=== PATIENT | female | born 1960 | race African-American/Black ===

== ENCOUNTER 2021-10-30 17:43 | Inpatient (IN) | payer MEDICAID ==
[~2021-10-30] VITALS: Ht 157.5 cm; Wt 66.4 kg
[2021-10-30] MEDS ORDERED: RIVA20TA PO (21:00)
[2021-10-30] MEDS ORDERED: ATOR40TA71 PO (21:00)
[2021-10-30] MEDS ORDERED: ALLO100T PO (21:00)
[2021-10-30] MEDS ORDERED: DIVA-111 PO (21:00)
[2021-10-30] MEDS ORDERED: FOLI-130 PO (21:00)
[2021-10-30] MEDS ORDERED: METO25 PO (21:00)
[2021-10-30] MEDS ORDERED: LACO150T2 PO (21:00)
[2021-10-30] MEDS ORDERED: METF-911 PO (21:00)
[2021-10-30] MEDS ORDERED: ZOLPIDEM TARTRATE 10 MG TABLET PO PRN (23:15)
[2021-10-30] MEDS ORDERED: LORazepam 2 MG TABLET PO PRN (23:15)
[2021-10-30] MEDS ORDERED: HALOPERIDOL 5 MG TABLET PO PRN (23:15)
[2021-10-30 23:47] LABS: ANION GAP 9 mmol/L (8-16); CARBON DIOXIDE 26 mmol/L (22-29); CHLORIDE 106 mmol/L (98-107); CREATININE 0.85 mg/dL (0.60-1.30); GLOMERULAR FILTR. RATE CALC > 60 mL/min (>60); GLUCOSE,RANDOM 108 mg/dL (70-110); POTASSIUM 3.4 mmol/L (3.5-5.1); SODIUM SERUM 141 mmol/L (136-145); UREA NITROGEN, BLOOD 19 mg/dL (7-18)
[2021-10-30 23:52] LABS: VALPROIC ACID 4 mcg/mL (50-100)
[2021-10-31 00:04] LABS: COVID AG,FIA SOURCE NASAL SWAB
[2021-10-31] MEDS ORDERED: LACOSAMIDE 100 MG TABLET PO ONE ×2 (02:45→20:15)
[2021-10-31 09:17] LABS: APPEARANCE,URINE CLEAR (CLEAR); BILIRUBIN,URINE NEGATIVE (NEGATIVE); GLUCOSE, URINE (UA) NEGATIVE (NEGATIVE); KETONES,URINE NEGATIVE (NEGATIVE); LEUKOCYTE ESTERASE ,URINE NEGATIVE (NEGATIVE); NITRATE,URINE NEGATIVE (NEGATIVE); OCCULT BLOOD,URINE NEGATIVE (NEGATIVE); PROTEIN,URINE NEGATIVE (NEGATIVE); SPECIFIC GRAVITIY, URINE 1.014 (1.003-1.030); UROBILINOGEN,URINE <=1.0 mg/dL (<=1.0)
[2021-10-31 15:31] VITALS: BP 197/92
[2021-10-31 16:14] VITALS: BP 158/89
[2021-10-31] MEDS ORDERED: LACOSAMIDE 50 MG TABLET PO ONE (21:00)
[2021-11-01] MEDS: MetFORMIN HCL 500 MG ER TABLET PO SCH (06:58)
[2021-11-01 08:01] VITALS: BP 199/104
[2021-11-01] MEDS: FOLIC ACID 1 MG TABLET PO SCH (08:06)
[2021-11-01] MEDS: METOPROLOL TARTRATE 25 MG TABLET PO SCH (08:06)
[2021-11-01] MEDS: ATORVASTATIN CALCIUM 40 MG TABLET PO SCH (08:06)
[2021-11-01] MEDS: ALLOPURINOL 100 MG TABLET PO SCH (08:06)
[2021-11-01] MEDS: LACOSAMIDE 50 MG TABLET PO SCH ×2 (08:07→17:04)
[2021-11-01 08:30] VITALS: BP 185/93
[2021-11-01] MEDS ORDERED: LACOSAMIDE 100 MG TABLET PO SCH (09:00)
[2021-11-01 10:05] VITALS: BP 191/98
[2021-11-01] MEDS ORDERED: ALBUTEROL SULFATE HFA 90 MCG/PUFF 8 GM INHALER IH PRN (10:15)
[2021-11-01] MEDS ORDERED: ACETAMINOPHEN 325 MG TABLET PO PRN (10:15)
[2021-11-01] MEDS ORDERED: MAGNESIUM HYDROXIDE SUSPENSION 30 ML UDCUP PO PRN (10:15)
[2021-11-01] MEDS ORDERED: BACITRACIN 28 GM OINTMENT TP PRN (10:15)
[2021-11-01] MEDS ORDERED: BENZOCAINE/MENTHOL LOZENGE PO PRN (10:15)
[2021-11-01] MEDS ORDERED: LOPERAMIDE HCL 2 MG CAPSULE PO PRN (10:15)
[2021-11-01] MEDS ORDERED: ONDANSETRON HCL 4 MG TABLET PO PRN (10:15)
[2021-11-01] MEDS ORDERED: PETROLATUM,WHITE 28 GM JELLY TP PRN (10:15)
[2021-11-01] MEDS ORDERED: IBUPROFEN 600 MG TABLET PO PRN (10:15)
[2021-11-01] MEDS ORDERED: MAG HYDROX/AL HYDROX/SIMETH ES 30 ML SUSPENSION UDCUP PO PRN (10:15)
[2021-11-01] MEDS: CloNIDine HCL 0.1 MG TABLET PO PRN (10:22)
[2021-11-01 12:00] VITALS: BP 160/79
[2021-11-01 16:16] VITALS: BP 168/80
[2021-11-01] MEDS: RIVAROXABAN 20 MG TABLET PO SCH (17:02)
[2021-11-01] MEDS ORDERED: POTASSIUM CHLORIDE 20 MEQ ER TABLET PO ONE (19:45)
[2021-11-02 06:28] LABS: ANION GAP 8 mmol/L (8-16); CALCIUM, TOTAL 9.5 mg/dL (8.8-10.5); CARBON DIOXIDE 24 mmol/L (22-29); CHLORIDE 106 mmol/L (98-107); CREATININE 0.79 mg/dL (0.60-1.30); GLOMERULAR FILTR. RATE CALC > 60 mL/min (>60); GLUCOSE,RANDOM 116 mg/dL (70-110); POTASSIUM 4.5 mmol/L (3.5-5.1); SODIUM SERUM 138 mmol/L (136-145); UREA NITROGEN, BLOOD 19 mg/dL (7-18)
[2021-11-02 06:30] VITALS: BP 200/100
[2021-11-02] MEDS: CloNIDine HCL 0.1 MG TABLET PO PRN (06:39)
[2021-11-02] MEDS: MetFORMIN HCL 500 MG ER TABLET PO SCH (06:48)
[2021-11-02 07:34] VITALS: BP 176/95
[2021-11-02 09:10] VITALS: BP 149/99
[2021-11-02] MEDS: DOCUSATE SODIUM 100 MG CAPSULE PO SCH (10:44)
[2021-11-02] MEDS: OMEPRAZOLE 20 MG CAPSULE PO SCH (10:45)
[2021-11-02] MEDS: FOLIC ACID 1 MG TABLET PO SCH (10:45)
[2021-11-02] MEDS: METOPROLOL TARTRATE 25 MG TABLET PO SCH (10:45)
[2021-11-02] MEDS: RisperiDONE 1 MG TABLET PO SCH ×2 (10:45→20:08)
[2021-11-02] MEDS: DIVALPROEX SODIUM 500 MG DR TABLET PO SCH ×2 (10:45→20:08)
[2021-11-02] MEDS: ATORVASTATIN CALCIUM 40 MG TABLET PO SCH (10:45)
[2021-11-02] MEDS: ALLOPURINOL 100 MG TABLET PO SCH (10:46)
[2021-11-02] MEDS: LACOSAMIDE 50 MG TABLET PO SCH ×2 (10:47→16:22)
[2021-11-02 16:13] VITALS: BP 133/74
[2021-11-02] MEDS: RIVAROXABAN 20 MG TABLET PO SCH (16:38)
[2021-11-03] MEDS: MetFORMIN HCL 500 MG ER TABLET PO SCH (06:34)
[2021-11-03 06:37] VITALS: BP 178/93
[2021-11-03 08:50] VITALS: BP 195/104
[2021-11-03] MEDS: DOCUSATE SODIUM 100 MG CAPSULE PO SCH (09:33)
[2021-11-03] MEDS: OMEPRAZOLE 20 MG CAPSULE PO SCH (09:33)
[2021-11-03] MEDS: DIVALPROEX SODIUM 500 MG DR TABLET PO SCH ×2 (09:34→20:20)
[2021-11-03] MEDS: LACOSAMIDE 50 MG TABLET PO SCH ×2 (09:34→17:25)
[2021-11-03] MEDS: ATORVASTATIN CALCIUM 40 MG TABLET PO SCH (09:35)
[2021-11-03] MEDS: RisperiDONE 1 MG TABLET PO SCH ×2 (09:35→20:20)
[2021-11-03] MEDS: METOPROLOL TARTRATE 25 MG TABLET PO SCH (09:35)
[2021-11-03] MEDS: FOLIC ACID 1 MG TABLET PO SCH (09:35)
[2021-11-03] MEDS: ALLOPURINOL 100 MG TABLET PO SCH (09:36)
[2021-11-03 13:04] VITALS: BP 162/82
[2021-11-03 14:03] VITALS: BP 154/86
[2021-11-03 16:30] VITALS: BP_SYST 172; BP_SYST 180; BP_DIAS 78
[2021-11-03] MEDS: CloNIDine HCL 0.1 MG TABLET PO PRN (16:32)
[2021-11-03] MEDS: RIVAROXABAN 20 MG TABLET PO SCH (16:32)
[2021-11-03 18:30] VITALS: BP 160/75
[2021-11-03] MEDS: NICOTINE 21 MG/24 HOUR PATCH TD SCH (19:43)
[2021-11-04] MEDS: CloNIDine HCL 0.1 MG TABLET PO PRN ×2 (06:17→20:11)
[2021-11-04 06:19] VITALS: BP 187/104
[2021-11-04] MEDS: MetFORMIN HCL 500 MG ER TABLET PO SCH (06:34)
[2021-11-04 06:58] VITALS: BP 151/86
[2021-11-04 09:00] VITALS: BP 166/100
[2021-11-04] MEDS: ATORVASTATIN CALCIUM 40 MG TABLET PO SCH (09:49)
[2021-11-04] MEDS: ALLOPURINOL 100 MG TABLET PO SCH (09:49)
[2021-11-04] MEDS: LACOSAMIDE 50 MG TABLET PO SCH ×2 (09:49→16:13)
[2021-11-04] MEDS: DIVALPROEX SODIUM 500 MG DR TABLET PO SCH ×2 (09:49→20:10)
[2021-11-04] MEDS: METOPROLOL TARTRATE 25 MG TABLET PO SCH (09:49)
[2021-11-04] MEDS: NICOTINE 21 MG/24 HOUR PATCH TD SCH (09:50)
[2021-11-04] MEDS: RisperiDONE 1 MG TABLET PO SCH ×2 (09:50→20:10)
[2021-11-04] MEDS: FOLIC ACID 1 MG TABLET PO SCH (09:50)
[2021-11-04] MEDS: OMEPRAZOLE 20 MG CAPSULE PO SCH (09:50)
[2021-11-04] MEDS: DOCUSATE SODIUM 100 MG CAPSULE PO SCH (10:00)
[2021-11-04] MEDS: RIVAROXABAN 20 MG TABLET PO SCH (16:13)
[2021-11-04 16:42] VITALS: BP 137/70
[2021-11-04 20:11] VITALS: BP 189/99
[2021-11-04 21:11] VITALS: BP 162/90
[2021-11-05 06:06] VITALS: BP 186/93
[2021-11-05] MEDS: CloNIDine HCL 0.1 MG TABLET PO PRN (06:26)
[2021-11-05] MEDS: MetFORMIN HCL 500 MG ER TABLET PO SCH (06:38)
[2021-11-05 06:59] VITALS: BP 140/80
[2021-11-05 06:59] LABS: COVID AG,FIA SOURCE NASAL SWAB
[2021-11-05] MEDS: DIVALPROEX SODIUM 500 MG DR TABLET PO SCH ×2 (08:32→20:22)
[2021-11-05] MEDS: OMEPRAZOLE 20 MG CAPSULE PO SCH (08:32)
[2021-11-05] MEDS: ALLOPURINOL 100 MG TABLET PO SCH (08:32)
[2021-11-05] MEDS: FOLIC ACID 1 MG TABLET PO SCH (08:32)
[2021-11-05] MEDS: ATORVASTATIN CALCIUM 40 MG TABLET PO SCH (08:32)
[2021-11-05] MEDS: DOCUSATE SODIUM 100 MG CAPSULE PO SCH (08:32)
[2021-11-05] MEDS: RisperiDONE 1 MG TABLET PO SCH ×2 (08:32→20:23)
[2021-11-05] MEDS: NICOTINE 21 MG/24 HOUR PATCH TD SCH (08:39)
[2021-11-05] MEDS: METOPROLOL TARTRATE 25 MG TABLET PO SCH (08:40)
[2021-11-05 09:05] VITALS: BP 140/81
[2021-11-05] MEDS: LACOSAMIDE 50 MG TABLET PO SCH ×2 (09:18→17:10)
[2021-11-05 16:48] VITALS: BP 121/83
[2021-11-05] MEDS: RIVAROXABAN 20 MG TABLET PO SCH (17:10)
[2021-11-06 06:09] VITALS: BP 162/88
[2021-11-06] MEDS: MetFORMIN HCL 500 MG ER TABLET PO SCH (06:39)
[2021-11-06] MEDS: NICOTINE 21 MG/24 HOUR PATCH TD SCH (08:53)
[2021-11-06] MEDS: DOCUSATE SODIUM 100 MG CAPSULE PO SCH (08:54)
[2021-11-06] MEDS: RisperiDONE 1 MG TABLET PO SCH (08:54)
[2021-11-06] MEDS: ATORVASTATIN CALCIUM 40 MG TABLET PO SCH (08:54)
[2021-11-06] MEDS: OMEPRAZOLE 20 MG CAPSULE PO SCH (08:54)
[2021-11-06] MEDS: DIVALPROEX SODIUM 500 MG DR TABLET PO SCH (08:54)
[2021-11-06] MEDS: FOLIC ACID 1 MG TABLET PO SCH (08:54)
[2021-11-06] MEDS: LACOSAMIDE 50 MG TABLET PO SCH ×2 (08:54→17:25)
[2021-11-06] MEDS: ALLOPURINOL 100 MG TABLET PO SCH (08:54)
[2021-11-06] MEDS: METOPROLOL TARTRATE 25 MG TABLET PO SCH (08:54)
[2021-11-06 09:07] VITALS: BP 185/110
[2021-11-06] MEDS ORDERED: RISP1TAB48 PO (15:38)
[2021-11-06] MEDS ORDERED: RIVA20TA PO (16:24)
[2021-11-06] MEDS ORDERED: DOCU-385 PO (16:25)
[2021-11-06] MEDS ORDERED: OMEP20 PO (16:25)
[2021-11-06] MEDS: RIVAROXABAN 20 MG TABLET PO SCH (17:25)
== END 2021-11-06 17:28 | disposition home or self-care (01) | DRG 750 ==
LOC: EMS 17:44 → EDBD 17:44 → B3A 10-31 10:28 → 3EI 10-31 13:11
PROVIDERS: ADMIT Psychiatry & Neurology Psychiatry; ATTEND Psychiatry & Neurology Psychiatry
DX: F25.9 Schizoaffective disorder, unspecified (principal); R45.851 Suicidal ideations; E11.9 Type 2 diabetes mellitus without complications; G40.909 Epilepsy, unspecified, not intractable, without status epilepticus; F32.A Depression, unspecified; G47.00 Insomnia, unspecified; G89.29 Other chronic pain; I10 Essential (primary) hypertension; I25.10 Atherosclerotic heart disease of native coronary artery without angina pectoris; Z20.822 Contact with and (suspected) exposure to COVID-19; J44.9 Chronic obstructive pulmonary disease, unspecified; E78.5 Hyperlipidemia, unspecified; F41.9 Anxiety disorder, unspecified; K21.9 Gastro-esophageal reflux disease without esophagitis; M19.90 Unspecified osteoarthritis, unspecified site; K59.00 Constipation, unspecified; F17.200 Nicotine dependence, unspecified, uncomplicated; Z63.4 Disappearance and death of family member; Z79.01 Long term (current) use of anticoagulants; Z71.6 Tobacco abuse counseling; Z79.4 Long term (current) use of insulin
CPT/HCPCS: 80048; 80164; 81003; 99285; Q9967